=== PATIENT | female | born 1965 | race Caucasian/White ===

== ENCOUNTER 2019-06-04 15:14 | Emergency (ER) | payer OTHER ==
[~2019-06-04] VITALS: Ht 170.2 cm; Wt 74.8 kg
[2019-06-04] MEDS ORDERED: TOPROL XL25 M1 (15:34)
== END 2019-06-04 19:08 | disposition home or self-care (01) ==
LOC: ER 15:14
DX: J06.9 Acute upper respiratory infection, unspecified (principal)

== ENCOUNTER 2019-06-10 04:33 | Emergency (ER) | payer OTHER ==
[~2019-06-10] VITALS: Ht 172.7 cm; Wt 90.7 kg
[~2019-06-10 04:33] MED LIST: TOPROL XL25 M1
[2019-06-10] MEDS ORDERED: AMOX1TAB5 (04:44)
[2019-06-10] MEDS ORDERED: XOPENEX0.63 MG/3 (04:45)
[2019-06-10] MEDS ORDERED: XOPENEX0.63 MG/3 IH (07:40)
[2019-06-10] MEDS ORDERED: BUDESONIDE0.5 MG/2 M IH (07:40)
== END 2019-06-10 08:23 | disposition home or self-care (01) ==
LOC: ER 04:33
DX: J40 Bronchitis, not specified as acute or chronic (principal)

== ENCOUNTER 2019-06-14 18:19 | Emergency (ER) | payer OTHER ==
[~2019-06-14] VITALS: Ht 172.7 cm; Wt 90.7 kg
[~2019-06-14 18:19] MED LIST changes: +AMOX1TAB5; +BUDESONIDE0.5 MG/2 M IH; +XOPENEX0.63 MG/3; +XOPENEX0.63 MG/3 IH
== END 2019-06-14 20:24 | disposition home or self-care (01) ==
LOC: ER 18:19
DX: J40 Bronchitis, not specified as acute or chronic (principal); J22 Unspecified acute lower respiratory infection

== ENCOUNTER 2019-06-26 22:49 | Emergency (ER) | payer OTHER ==
[~2019-06-26] VITALS: Ht 172.7 cm; Wt 90.7 kg
== END 2019-06-27 01:59 | disposition home or self-care (01) ==
LOC: ER 22:49
DX: R05 Cough (principal)

== ENCOUNTER 2019-12-27 06:35 | Day surgery (SDC) | payer OTHER ==
[~2019-12-27 06:35] MED LIST changes: +ZOCOR20 MG PO
== END 2019-12-28 09:30 | disposition home or self-care (01) ==
LOC: CIR.AMB 06:35
PROVIDERS: ATTEND Specialist
DX: N62 Hypertrophy of breast (principal); J95.89 Other postprocedural complications and disorders of respiratory system, not elsewhere classified; J98.01 Acute bronchospasm; Z20.828 Contact with and (suspected) exposure to other viral communicable diseases

== ENCOUNTER 2021-07-09 08:21 | Emergency (ER) | payer OTHER ==
[~2021-07-09] VITALS: Ht 172.7 cm; Wt 89.8 kg
[2021-07-09] MEDS ORDERED: XANAX XR0.5 MG PO (12:19)
[2021-07-09] MEDS ORDERED: LABETALOL HCL100 MG PO (12:19)
[2021-07-09] MEDS ORDERED: PAXIL20 MG PO (12:19)
== END 2021-07-09 12:43 | disposition home or self-care (01) ==
LOC: ER 08:21
DX: F41.9 Anxiety disorder, unspecified (principal); I10 Essential (primary) hypertension; Z88.8 Allergy status to other drugs, medicaments and biological substances